=== PATIENT | female | born 1965 | race Caucasian/White ===

== ENCOUNTER 2017-02-26 21:44 | Emergency (ER) | payer OTHER ==
--- NOTE | 2017-02-26 22:52 | ED NURSING NOTES ---
Clinical Report - Nurses [place] [address] [place] [address] 02/26/2017 21:45 Patient: WHITNEY GRAVES TRIAGE Triage time 2146. Acuity: LEVEL 4. Chief Complaint: INJURY TO LEFT SHOULDER. INJURY TO THE LEFT SCAPULA AREA, LEFT SHOULDER and LEFT ARM. --22:00 Yuly Malcolm R.N. 21:46 02/26/17. BP: 158/91. HR: 94. RR: 20. O2 saturation: 99%. Temp: 98.4 F. Pain level now: 09/01. --22:00 Yuly Malcolm R.N. Weight: 65.7 kg measured. Height/Length: 66 inches Measured. BMI: 23.4. --21:56 Yuly Malcolm R.N. Medications tylenol 650mg prn- last dose 1800. --21:55 Yuly Malcolm R.N. Motrin 1200mg at 1800. --21:56 Yuly Malcolm R.N. Centrum Oral i daily . --21:56 Yuly Malcolm R.N. Allergies Demerol. Hydroxyzine. Sulfa Antibiotics. --21:55 Yuly Malcolm R.N. History Arrived by private vehicle. Historian: patient. Unaccompanied. Primary physician (martín). This occurred today (1300). 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 PAST MEDICAL HX: The patient is post-menopausal. SOCIAL HX: Light tobacco smoker (cigarette)- less than 1/2 a pack per day. No alcohol use or drug use. --22:00 Yuly Malcolm R.N. PROBLEMS: Rib Fracture. COPD - Chronic Obstructive Pulmonary Disease. Disc, bulging. Fibromyalgia. Chest Pain. Hypertension. Back Pain. --22:00 Yuly Malcolm R.N. ADDITIONAL SURGERIES: Hysterectomy. Neck Surgery. Oophorectomy. Tonsillectomy. Tubal Ligation. --22:00 Yuly Malcolm R.N. Interventions ID band on patient. To treatment room. --22:00 Yuly Malcolm R.N. PHYSICAL ASSESSMENT 21:46. Ambulatory to room. Patient gowned. GENERAL / NEURO / PSYCH: Oriented X 4. Alert. Appears in pain. EXTREMITIES: Limited ROM present. Capillary refill is less than 2 seconds in the extremities. Extremity pulses are within normal limits. Neuro-vascular status intact to the extremity. Left shoulder: tenderness and swelling. Left arm: tenderness. SKIN: Skin is warm and dry. --22:01 Yuly Malcolm R.N. NURSING PROGRESS NOTES 21:46. Cold pack applied. Patient gowned. Reassurance given. Patient identifiers checked. Call light placed in reach. Side rails up. Bed placed in lowest position. Patient ready for evaluation- chart flagged. --22:00 Yuly Malcolm R.N. 22:11 02/26/2017 Hydrocodone-APAP (Hydrocodone-Acetaminophen) PO 5/325 mg Tablets 1 tab given. Allergies verified, confirmed 5 rights and sedative warning given to the patient. --22:11 Yuly Malcolm R.N. 22:18. Patient walked to radiology with tech. --22:28 Yuly Malcolm R.N. 22:28 02/26/17. Patient walked back to ED from radiology with tech. --22:28 Yuly Malcolm R.N. 22:29 02/26/17. Care transferred and report given (ZABRINA Victoria). --22:29 Yuly Malcolm R.N. 22:33 02/26/17. Care transferred and report received (from ABBY Emery, assumed patient care at this time). --22:33 Christina Diaz R.N. DISPOSITION / DISCHARGE 23:11 02/26/17. Condition at departure: improved and stable. The goals identified in the patient's plan of care were met. No learning barriers present. Reviewed medication(s) side effects, precautions, dosing and course information. Prescription(s) given to the patient. Patient verbalized understanding. Written instructions provided in Swedish. The patient was discharged home and unaccompanied at time of discharge. She left the Emergency Department ambulatory and via private vehicle. Patient driving. --23:11 Christina Diaz R.N. 23:11 02/26/17. Pain level now 05/02. --23:11 Christina Diaz R.N. 21:46 02/26/17. BP: 158/91. HR: 94. RR: 20. O2 saturation: 99%. Temp: 98.4 F. Pain level now: 09/01. --23:11 Christina Diaz R.N. Departure time: 23:11 Feb 26 2017. --23:11 Christina Diaz R.N. Locked/Released at 02/26/2017 23:11 by Christina Diaz R.N.
--- NOTE | 2017-02-26 22:52 | ED ORDER SUMMARY ---
..... Patient: WHITNEY GRAVES OrderSheet [facility] VisitID: [id number] [address] [place] [address] 51y, F Registration Date/Time: 02/26/2017 ORDER SHEET Weight: 65.7 kg (measured) Allergies: Demerol, Hydroxyzine, Sulfa Antibiotics GENERAL ORDERS: Shoulder 2V or more Right Urgent (22:04 02/26/2017 HBivens A.R.N.P.) (Ack 22:06 SRedmond) (22:19 HBivens A.R.N.P.) (Cancelled: Other22:19 HBivens A.R.N.P.) Shoulder 2V or more Left Urgent (22:18 02/26/2017 HBivens A.R.N.P.) (22:26 MCampbell) MEDICATION ORDERS: Hydrocodone-APAP PO 5/325 mg (NOW, HIGH ALERT MEDICATION) (22:04 02/26/2017 HBivens A.R.N.P.) (22:11 DDean R.N.) IV FLUIDS: ORDER SHEET NOTES: [Electronically signed by Christina Diaz R.N. (23:11 02/26/2017)] [Electronically signed by La LopezR.N.P. (14:36 02/27/2017)] [Electronically locked/signed by Christina Diaz R.N. (23:11 02/26/2017)]
--- NOTE | 2017-02-26 22:52 | ED ORDER SUMMARY ---
..... Patient: WHITNEY GRAVES OrderSheet [facility] VisitID: [id number] [address] [place] [address] 51y, F Registration Date/Time: 02/26/2017 ORDER SHEET Weight: 65.7 kg (measured) Allergies: Demerol, Hydroxyzine, Sulfa Antibiotics GENERAL ORDERS: Shoulder 2V or more Right Urgent (22:04 02/26/2017 HBivens A.R.N.P.) (Ack 22:06 SRedmond) (22:19 HBivens A.R.N.P.) (Cancelled: Other22:19 HBivens A.R.N.P.) Shoulder 2V or more Left Urgent (22:18 02/26/2017 HBivens A.R.N.P.) (22:26 MCampbell) MEDICATION ORDERS: Hydrocodone-APAP PO 5/325 mg (NOW, HIGH ALERT MEDICATION) (22:04 02/26/2017 HBivens A.R.N.P.) (22:11 DDean R.N.) IV FLUIDS: ORDER SHEET NOTES: [Electronically signed by Christina Diaz R.N. (23:11 02/26/2017)] [Electronically signed by La LopezR.N.P. (14:36 02/27/2017)] [Electronically locked/signed by Christina Diaz R.N. (23:11 02/26/2017)]
--- NOTE | 2017-02-26 22:52 | ED CLINICAL REPORT ---
Clinical Report - Physicians/Mid Levels [facility] [address] [place] [address] 02/26/2017 21:45 Patient: WHITNEY GRAVES Time Seen: 2154; upon arrival, initial patient contact, initial documentation, patient care assumed. Arrived- By private vehicle. Historian- patient. HISTORY OF PRESENT ILLNESS Chief Complaint: Injury to left shoulder. The injury happened today. Occurred at work. 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 Patient is experiencing severe pain. Patient denies injury to the head or neck. No other injury. REVIEW OF SYSTEMS No swelling, tingling, numbness, weakness or skin laceration. All systems otherwise negative, except as recorded above. PAST HISTORY See nurses notes. PROBLEMS: Rib Fracture. COPD - Chronic Obstructive Pulmonary Disease. Disc, bulging. Fibromyalgia. Chest Pain. Hypertension. Back Pain. --22:00 Yuly Malcolm R.N. ADDITIONAL SURGERIES: Hysterectomy. Neck Surgery. Oophorectomy. Tonsillectomy. Tubal Ligation. --22:00 Yuly Malcolm R.N. The patient's dominant hand is the right. SOCIAL HISTORY Light tobacco smoker. No alcohol use or drug use. No recent travel. Is a local resident. FAMILY HISTORY No significant family medical history. ADDITIONAL NOTES The nursing notes have been reviewed with agreement regarding the chief complaint, HPI, ROS, PMH and patient medications and allergies. PHYSICAL EXAM Vital Signs: 02/26/2017 21:46 BP: 158/91. HR: 94. RR: 20. O2 saturation: 99%. Temp: 98.4 F. Pain level now: 1010. Have been reviewed as normal and appear to be correct. Appearance: Alert. Oriented X3. No acute distress. Head: Head atraumatic. Eyes: Pupils equal, round and reactive to light. Eyes normal inspection. Respiratory: No respiratory distress. Back: Normal inspection. No tenderness. ROM normal. Skin: Skin intact. Skin warm and dry. Normal skin color. Normal skin turgor. Extremities: Abnormal external inspection. Extremity tenderness. Left shoulder: mild tenderness located in the posterior aspect of the shoulder. Neurovascular intact distally. (pt stated she couldn't move it because of pain, but took her shirt off without issues). No erythema, swelling, laceration, abrasion or ecchymosis. No puncture wound, foreign body or deformity. No joint effusion or limitation in ROM. Shoulder injury present. Shoulder otherwise negative. Extremities otherwise negative. Neuro, Vascular and Tendons: Sensation intact. Motor intact. Vascular status intact. Tendon function intact. Tendon visualized, uninjured. Neuro: Oriented X 3. No motor deficit. No sensory deficit. Note: isolated injury to L shoulder. LABS, X-RAYS, AND EKG X-Rays: X-rays are normal and reveal no acute disease (and reviewed by dr sherman). Left shoulder negative. The X-rays were independently viewed by me. PROGRESS AND PROCEDURES Patient counseled in person regarding the patient's stable condition, test results and diagnosis. 22:52. Differential Diagnosis: I considered stress fracture, arthritis, sprain, hyperextension, rotator cuff tear, acromioclavicular separation, soft tissue injury, soft tissue hematoma, tendonitis, myositis, fasciitis and bursitis as a possible cause of upper extremity pain in this patient. This is a partial list of diagnoses considered. Above considerations are based on history, physical exam, reassessment and X-Ray data. Differential diagnosis was discussed with patient. Disposition: Discharged home in good and improved condition (22:52). Condition: good and stable. CLINICAL IMPRESSION Muscle strain of the left trapezius and rotator cuff at the shoulder. INSTRUCTIONS Apply ice for 20 minutes four times a day for one days until better. Don't apply ice directly to skin. Warnings: GENERAL WARNINGS: Return or contact your physician immediately if your condition worsens or changes unexpectedly, if not improving as expected, or if other problems arise. Specifically return if problem worsens. Prescription Medications: Ultram 50 mg tablets: take 1-2 orally every 6 hours as needed for pain. Dispense twenty (20). No refills. Substitution is permissible. Follow-up: Follow up with your doctor in about one week as needed. Call for an appointment. Summary of care provided to patient. Understanding of the discharge instructions verbalized by patient. (Electronically signed by La Lopez A.R.N.P. 02/27/2017 14:36)
--- NOTE | 2017-02-26 23:48 | DIAGNOSTIC IMAGING REPORT ---
PROCEDURE: XR SHOULDER 2 OR MORE VW-LEFT INDICATION: TRAUMA/INJURY TECHNIQUE: Four views. COMPARISON: None. FINDINGS: Osseous structures and joint spaces are normal. IMPRESSION: 1. Normal left shoulder.
--- NOTE | 2017-02-27 14:36 | ED MED RECONCILIATION SUMMARY ---
Patient: WHITNEY GRAVES Medication Reconciliation Report [facility] VisitID: [id number] [address] [place] [address] 51y, F Registration Date/Time: 02/26/2017 Weight: 65.7 kg Height/Length: 66 in. BMI: 23.4 ALLERGIES: Demerol, Hydroxyzine, Sulfa Antibiotics The patient's Home Medications are listed below: THE FOLLOWING MEDICATIONS NEED TO BE RECONCILED: Centrum Oral i daily Motrin 1200mg at 1800 tylenol 650mg prn- last dose 1800 The source(s) of the original Home Medication information: Not obtained. The following Medications were given to the patient in the Emergency Department: Hydrocodone-APAP [PO] PO 1 tab, administered: 02/26/2017 10:11:00 PM The following Medications were prescribed to the patient: Ultram 50 mg tablets: take 1-2 orally every 6 hours as needed for pain. Dispense twenty (20). No refills. Substitution is permissible. -- La Lopez A.R.N.P.
--- NOTE | 2017-02-27 14:36 | ED MAR SUMMARY ---
..... Medication Administration Record [facility] [address] [place] [address] Patient: WHITNEY GRAVES Visit ID: [id number] 51y, F Weight: 65.7 kg Height/Length: 66 in BMI: 23.4 ALLERGIES: Demerol, Hydroxyzine, Sulfa Antibiotics Given 22:11 02/26/2017 Gold, Laura Emery. Medication Administered: HYDROCODONE-APAP [PO] (HYDROCODONE-ACETAMINOPHEN), Dose: 1 tab 5/325 mg Tablets PO. Medication Ordered: Hydrocodone-APAP PO 5/325 mg (NOW, HIGH ALERT MEDICATION).
--- NOTE | 2017-02-27 14:36 | ED MED RECONCILIATION SUMMARY ---
Patient: WHITNEY GRAVES Medication Reconciliation Report [facility] VisitID: [id number] [address] [place] [address] 51y, F Registration Date/Time: 02/26/2017 Weight: 65.7 kg Height/Length: 66 in. BMI: 23.4 ALLERGIES: Demerol, Hydroxyzine, Sulfa Antibiotics The patient's Home Medications are listed below: THE FOLLOWING MEDICATIONS NEED TO BE RECONCILED: Centrum Oral i daily Motrin 1200mg at 1800 tylenol 650mg prn- last dose 1800 The source(s) of the original Home Medication information: Not obtained. The following Medications were given to the patient in the Emergency Department: Hydrocodone-APAP [PO] PO 1 tab, administered: 02/26/2017 10:11:00 PM The following Medications were prescribed to the patient: Ultram 50 mg tablets: take 1-2 orally every 6 hours as needed for pain. Dispense twenty (20). No refills. Substitution is permissible. -- La Lopez A.R.N.P.
--- NOTE | 2017-02-27 14:36 | ED DISCHARGE INSTRUCTIONS ---
Patient: WHITNEY GRAVES General Instructions [facility] VisitID: [id number] [place] [address] 51y, F Registration Date/Time: 02/26/2017 Muscle strain of the left trapezius and rotator cuff at the shoulder. INSTRUCTIONS Apply ice for 20 minutes four times a day for one days until better. Don't apply ice directly to skin. Warnings: GENERAL WARNINGS: Return or contact your physician immediately if your condition worsens or changes unexpectedly, if not improving as expected, or if other problems arise. Specifically return if problem worsens. Prescription Medications: Ultram 50 mg tablets: take 1-2 orally every 6 hours as needed for pain. Dispense twenty (20). No refills. Substitution is permissible. Follow-up: Follow up with your doctor in about one week as needed. Call for an appointment. Summary of care provided to patient. Understanding of the discharge instructions verbalized by patient. ADDITIONAL INFORMATION Muscle Strain,Extremity A MUSCLE STRAIN is a stretching and tearing of muscle fibers. This causes pain, especially with motion of that muscle. There may also be some swelling and bruising. Home Care: 1) Keep the injured area raised to reduce pain and swelling. This is especially important during the first 48 hours. 2) Make an ice pack (ice cubes in a plastic bag, wrapped in a towel) and apply for 20 minutes every 1-2 hours the first day. You should continue with ice packs 3-4 times a day for the second and third days. Unless otherwise instructed, on the fourth day you may begin hot soaks or hot packs (small towel soaked in hot water) 3-4 times a day while you gently exercise the involved area. 3) You may use acetaminophen (Tylenol) or ibuprofen (Motrin, Advil) to control pain, unless another medicine was prescribed. [ NOTE : If you have chronic liver or kidney disease or ever had a stomach ulcer or GI bleeding, talk with your doctor before using these medicines.] 4) For LEG STRAINS: If CRUTCHES have been recommended, do not bear full weight on the injured leg until you can do so without pain. You may return to sports when you are able to hop and run on the injured leg without pain. Follow Up with your doctor or this facility if you are not improving within the next five days. Get Prompt Medical Attention if any of the following occur: -- Fingers or toes become swollen, cold, blue, numb or tingly -- Pain or swelling increases Tramadol Hydrochloride Oral tablet What is this medicine? TRAMADOL (TRA ma dole) is a pain reliever. It is used to treat moderate to severe pain in adults. How should I use this medicine? Take this medicine by mouth with a full glass of water. Follow the directions on the prescription label. If the medicine upsets your stomach, take it with food or milk. Do not take more medicine than you are told to take. Talk to your ferry operator regarding the use of this medicine in children. Special care may be needed. What side effects may I notice from receiving this medicine? Side effects that you should report to your doctor or health critical care transport nurse as soon as possible: allergic reactions like skin rash, itching or hives, swelling of the face, lips, or tongue breathing difficulties, wheezing confusion itching light headedness or fainting spells redness, blistering, peeling or loosening of the skin, including inside the mouth seizures Side effects that usually do not require medical attention (report to your doctor or health critical care transport nurse if they continue or are bothersome): constipation dizziness drowsiness headache nausea, vomiting What may interact with this medicine? Do not take this medicine with any of the following medications: MAOIs like Carbex, Eldepryl, Marplan, Nardil, and Parnate This medicine may also interact with the following medications: alcohol or medicines that contain alcohol antihistamines benzodiazepines bupropion carbamazepine or oxcarbazepine clozapine cyclobenzaprine digoxin furazolidone linezolid medicines for depression, anxiety, or psychotic disturbances medicines for migraine headache like almotriptan, eletriptan, frovatriptan, naratriptan, rizatriptan, sumatriptan, zolmitriptan medicines for pain like pentazocine, buprenorphine, butorphanol, meperidine, nalbuphine, and propoxyphene medicines for sleep muscle relaxants naltrexone phenobarbital phenothiazines like perphenazine, thioridazine, chlorpromazine, mesoridazine, fluphenazine, prochlorperazine, promazine, and trifluoperazine procarbazine warfarin What if I miss a dose? If you miss a dose, take it as soon as you can. If it is almost time for your next dose, take only that dose. Do not take double or extra doses. Where should I keep my medicine? Keep out of the reach of children. Store at room temperature between 15 and 30 degrees C (59 and 86 degrees F). Keep container tightly closed. Throw away any unused medicine after the expiration date. What should I tell my health care provider before I take this medicine? They need to know if you have any of these conditions: brain tumor depression drug abuse or addiction head injury if you frequently drink alcohol containing drinks kidney disease or trouble passing urine liver disease lung disease, asthma, or breathing problems seizures or epilepsy suicidal thoughts, plans, or attempt; a previous suicide attempt by you or a family member an unusual or allergic reaction to tramadol, codeine, other medicines, foods, dyes, or preservatives or trying to get breast-feeding What should I watch for while using this medicine? Tell your doctor or health critical care transport nurse if your pain does not go away, if it gets worse, or if you have new or a different type of pain. You may develop tolerance to the medicine. Tolerance means that you will need a higher dose of the medicine for pain relief. Tolerance is normal and is expected if you take this medicine for a long time. Do not suddenly stop taking your medicine because you may develop a severe reaction. Your body becomes used to the medicine. This does NOT mean you are addicted. Addiction is a behavior related to getting and using a drug for a non-medical reason. If you have pain, you have a medical reason to take pain medicine. Your doctor will tell you how much medicine to take. If your doctor wants you to stop the medicine, the dose will be slowly lowered over time to avoid any side effects. You may get drowsy or dizzy. Do not drive, use machinery, or do anything that needs mental alertness until you know how this medicine affects you. Do not stand or sit up quickly, especially if you are an older patient. This reduces the risk of dizzy or fainting spells. Alcohol can increase or decrease the effects of this medicine. Avoid alcoholic drinks. You may have constipation. Try to have a bowel movement at least every 2 to 3 days. If you do not have a bowel movement for 3 days, call your doctor or health critical care transport nurse. Your mouth may get dry. Chewing sugarless gum or sucking hard candy, and drinking plenty of water may help. Contact your doctor if the problem does not go away or is severe. You have been given the following additional information: Muscle Strain, Extremity Tramadol Hydrochloride Oral tablet (Electronically signed by La Lopez A.R.N.P. 02/27/2017 14:36)
--- NOTE | 2017-02-27 14:36 | ED MAR SUMMARY ---
..... Medication Administration Record [facility] [address] [place] [address] Patient: WHITNEY GRAVES Visit ID: [id number] 51y, F Weight: 65.7 kg Height/Length: 66 in BMI: 23.4 ALLERGIES: Demerol, Hydroxyzine, Sulfa Antibiotics Given 22:11 02/26/2017 Gold, Laura Emery. Medication Administered: HYDROCODONE-APAP [PO] (HYDROCODONE-ACETAMINOPHEN), Dose: 1 tab 5/325 mg Tablets PO. Medication Ordered: Hydrocodone-APAP PO 5/325 mg (NOW, HIGH ALERT MEDICATION).
--- NOTE | 2017-02-27 14:36 | ED DISCHARGE INSTRUCTIONS ---
Patient: WHITNEY GRAVES General Instructions [facility] VisitID: [id number] [place] [address] 51y, F Registration Date/Time: 02/26/2017 Muscle strain of the left trapezius and rotator cuff at the shoulder. INSTRUCTIONS Apply ice for 20 minutes four times a day for one days until better. Don't apply ice directly to skin. Warnings: GENERAL WARNINGS: Return or contact your physician immediately if your condition worsens or changes unexpectedly, if not improving as expected, or if other problems arise. Specifically return if problem worsens. Prescription Medications: Ultram 50 mg tablets: take 1-2 orally every 6 hours as needed for pain. Dispense twenty (20). No refills. Substitution is permissible. Follow-up: Follow up with your doctor in about one week as needed. Call for an appointment. Summary of care provided to patient. Understanding of the discharge instructions verbalized by patient. ADDITIONAL INFORMATION Muscle Strain,Extremity A MUSCLE STRAIN is a stretching and tearing of muscle fibers. This causes pain, especially with motion of that muscle. There may also be some swelling and bruising. Home Care: 1) Keep the injured area raised to reduce pain and swelling. This is especially important during the first 48 hours. 2) Make an ice pack (ice cubes in a plastic bag, wrapped in a towel) and apply for 20 minutes every 1-2 hours the first day. You should continue with ice packs 3-4 times a day for the second and third days. Unless otherwise instructed, on the fourth day you may begin hot soaks or hot packs (small towel soaked in hot water) 3-4 times a day while you gently exercise the involved area. 3) You may use acetaminophen (Tylenol) or ibuprofen (Motrin, Advil) to control pain, unless another medicine was prescribed. [ NOTE : If you have chronic liver or kidney disease or ever had a stomach ulcer or GI bleeding, talk with your doctor before using these medicines.] 4) For LEG STRAINS: If CRUTCHES have been recommended, do not bear full weight on the injured leg until you can do so without pain. You may return to sports when you are able to hop and run on the injured leg without pain. Follow Up with your doctor or this facility if you are not improving within the next five days. Get Prompt Medical Attention if any of the following occur: -- Fingers or toes become swollen, cold, blue, numb or tingly -- Pain or swelling increases Tramadol Hydrochloride Oral tablet What is this medicine? TRAMADOL (TRA ma dole) is a pain reliever. It is used to treat moderate to severe pain in adults. How should I use this medicine? Take this medicine by mouth with a full glass of water. Follow the directions on the prescription label. If the medicine upsets your stomach, take it with food or milk. Do not take more medicine than you are told to take. Talk to your air quality engineer regarding the use of this medicine in children. Special care may be needed. What side effects may I notice from receiving this medicine? Side effects that you should report to your doctor or health child care center administrator as soon as possible: allergic reactions like skin rash, itching or hives, swelling of the face, lips, or tongue breathing difficulties, wheezing confusion itching light headedness or fainting spells redness, blistering, peeling or loosening of the skin, including inside the mouth seizures Side effects that usually do not require medical attention (report to your doctor or health child care center administrator if they continue or are bothersome): constipation dizziness drowsiness headache nausea, vomiting What may interact with this medicine? Do not take this medicine with any of the following medications: MAOIs like Carbex, Eldepryl, Marplan, Nardil, and Parnate This medicine may also interact with the following medications: alcohol or medicines that contain alcohol antihistamines benzodiazepines bupropion carbamazepine or oxcarbazepine clozapine cyclobenzaprine digoxin furazolidone linezolid medicines for depression, anxiety, or psychotic disturbances medicines for migraine headache like almotriptan, eletriptan, frovatriptan, naratriptan, rizatriptan, sumatriptan, zolmitriptan medicines for pain like pentazocine, buprenorphine, butorphanol, meperidine, nalbuphine, and propoxyphene medicines for sleep muscle relaxants naltrexone phenobarbital phenothiazines like perphenazine, thioridazine, chlorpromazine, mesoridazine, fluphenazine, prochlorperazine, promazine, and trifluoperazine procarbazine warfarin What if I miss a dose? If you miss a dose, take it as soon as you can. If it is almost time for your next dose, take only that dose. Do not take double or extra doses. Where should I keep my medicine? Keep out of the reach of children. Store at room temperature between 15 and 30 degrees C (59 and 86 degrees F). Keep container tightly closed. Throw away any unused medicine after the expiration date. What should I tell my health care provider before I take this medicine? They need to know if you have any of these conditions: brain tumor depression drug abuse or addiction head injury if you frequently drink alcohol containing drinks kidney disease or trouble passing urine liver disease lung disease, asthma, or breathing problems seizures or epilepsy suicidal thoughts, plans, or attempt; a previous suicide attempt by you or a family member an unusual or allergic reaction to tramadol, codeine, other medicines, foods, dyes, or preservatives or trying to get breast-feeding What should I watch for while using this medicine? Tell your doctor or health child care center administrator if your pain does not go away, if it gets worse, or if you have new or a different type of pain. You may develop tolerance to the medicine. Tolerance means that you will need a higher dose of the medicine for pain relief. Tolerance is normal and is expected if you take this medicine for a long time. Do not suddenly stop taking your medicine because you may develop a severe reaction. Your body becomes used to the medicine. This does NOT mean you are addicted. Addiction is a behavior related to getting and using a drug for a non-medical reason. If you have pain, you have a medical reason to take pain medicine. Your doctor will tell you how much medicine to take. If your doctor wants you to stop the medicine, the dose will be slowly lowered over time to avoid any side effects. You may get drowsy or dizzy. Do not drive, use machinery, or do anything that needs mental alertness until you know how this medicine affects you. Do not stand or sit up quickly, especially if you are an older patient. This reduces the risk of dizzy or fainting spells. Alcohol can increase or decrease the effects of this medicine. Avoid alcoholic drinks. You may have constipation. Try to have a bowel movement at least every 2 to 3 days. If you do not have a bowel movement for 3 days, call your doctor or health child care center administrator. Your mouth may get dry. Chewing sugarless gum or sucking hard candy, and drinking plenty of water may help. Contact your doctor if the problem does not go away or is severe. You have been given the following additional information: Muscle Strain, Extremity Tramadol Hydrochloride Oral tablet (Electronically signed by La Lopez A.R.N.P. 02/27/2017 14:36)
== END 2017-02-26 23:11 | disposition home or self-care (01) ==
LOC: ED SRH 21:44
DX: S46.812A Strain of other muscles, fascia and tendons at shoulder and upper arm level, left arm, initial encounter (principal); S46.012A Strain of muscle(s) and tendon(s) of the rotator cuff of left shoulder, initial encounter; X50.0XXA Overexertion from strenuous movement or load, initial encounter; Y93.89 Activity, other specified; Y92.89 Other specified places as the place of occurrence of the external cause; Y99.0 Civilian activity done for income or pay; J44.9 Chronic obstructive pulmonary disease, unspecified; I10 Essential (primary) hypertension; F17.210 Nicotine dependence, cigarettes, uncomplicated; Z79.84 Long term (current) use of oral hypoglycemic drugs; Z88.2 Allergy status to sulfonamides

== ENCOUNTER 2017-05-21 11:24 | Emergency (ER) | payer OTHER ==
--- NOTE | 2017-05-21 12:52 | ED CLINICAL REPORT ---
Clinical Report - Physicians/Mid Levels [facility] [address] [place] [place] [address] 05/21/2017 11:28 Patient: WHITNEY GRAVES Time Seen: 12:43 Yosvany 2016. Arrived- By private vehicle. Historian- patient. CPT: ER phys charges level 3 (#[id number]). HISTORY OF PRESENT ILLNESS Chief Complaint: BACK INJURY and BACK PAIN. It is described as being moderate in degree. The quality is noted to be sharp, aching and "pain". No radiation. Onset was yesterday and it is still present. No bladder dysfunction, bowel dysfunction, sensory loss or motor loss. Patient notes an injury. Mechanism of injury- she was lifting. No other injury. Similar symptoms previously: Recent medical care: Not recently seen/assessed. REVIEW OF SYSTEMS No fever, chills, difficulty with urination, urinary frequency or hematuria. No sore throat, cough, difficulty breathing, chest pain or abdominal pain. No nausea or vomiting. PAST HISTORY Has had back injury. She has had prior back pain. Medications: Ibuprofen Oral. Naproxen Oral. tylenol 650mg prn- last dose 1800. Allergies: Demerol. Hydroxyzine. Sulfa Antibiotics. SOCIAL HISTORY No alcohol use or drug use. ADDITIONAL NOTES The nursing notes have been reviewed. PHYSICAL EXAM Vital Signs: 05/21/2017 11:46 BP: 148/106. HR: 88. RR: 20. O2 saturation: 99%. Temp: 98.6 F. Appearance: Alert. Patient in mild distress. ENT: Pharynx normal. Neck: Normal inspection. Neck nontender. Painless ROM. CVS: Heart sounds normal. Respiratory: No respiratory distress. Abdomen: Nontender. Back: Normal inspection. Soft tissue tenderness (Over the right trapezius). No limitation in ROM. Skin: Skin warm. Normal skin color. No rash. Extremities: Extremities exhibit normal ROM. Extremities nontender. Neuro: Oriented X 3. Mood/affect normal. No motor deficit. No sensory deficit. Reflexes normal. PROGRESS AND PROCEDURES Patient/family counseled. Disposition: Discharged. Condition: stable. CLINICAL IMPRESSION Muscle strain of the upper back (left trapezius.). INSTRUCTIONS Apply moist heat for 15-20 minutes three times a day for one weeks until better. Limit lifting. No strenuous activity. Your Current Medications: CONTINUE TAKING THE FOLLOWING MEDICATIONS: Ibuprofen Oral. Naproxen Oral. tylenol 650mg prn- last dose 1800*. Prescription Medications: Flexeril 5 mg: take 1 orally every 8 hours as needed for muscle spasm or pain. Dispense ten (10). No refills. Substitution is permissible. Ultram take 1-2 orally every 8 hours as needed for pain. Dispense fifteen (15). No refills. Substitution is permissible. Follow-up: Follow up with your doctor in one week. Call for an appointment. Understanding of the discharge instructions verbalized by patient. (Electronically signed by Jonatan Orourke MD 05/22/2017 9:04) Addenda for WHITNEY GRAVES VisitID: [id number] Date: 05/21/2017 05/21/2017 16:56 [facility] pharmacy called, wanted to verify dose of Ultram, consulted w/ Dr. Orourke and he said 50 mg is correct. (Electronically signed by Jerrica Frederick R.N. - 05/21/2017 16:56)
--- NOTE | 2017-05-21 12:52 | ED CLINICAL REPORT ---
Clinical Report - Physicians/Mid Levels [facility] [address] [place] [address] 05/21/2017 11:28 Patient: WHITNEY GRAVES Time Seen: 12:43 Yosvany 2016. Arrived- By private vehicle. Historian- patient. CPT: ER phys charges level 3 (#[id number]). HISTORY OF PRESENT ILLNESS Chief Complaint: BACK INJURY and BACK PAIN. It is described as being moderate in degree. The quality is noted to be sharp, aching and "pain". No radiation. Onset was yesterday and it is still present. No bladder dysfunction, bowel dysfunction, sensory loss or motor loss. Patient notes an injury. Mechanism of injury- she was lifting. No other injury. Similar symptoms previously: Recent medical care: Not recently seen/assessed. REVIEW OF SYSTEMS No fever, chills, difficulty with urination, urinary frequency or hematuria. No sore throat, cough, difficulty breathing, chest pain or abdominal pain. No nausea or vomiting. PAST HISTORY Has had back injury. She has had prior back pain. Medications: Ibuprofen Oral. Naproxen Oral. tylenol 650mg prn- last dose 1800. Allergies: Demerol. Hydroxyzine. Sulfa Antibiotics. SOCIAL HISTORY No alcohol use or drug use. ADDITIONAL NOTES The nursing notes have been reviewed. PHYSICAL EXAM Vital Signs: 05/21/2017 11:46 BP: 148/106. HR: 88. RR: 20. O2 saturation: 99%. Temp: 98.6 F. Appearance: Alert. Patient in mild distress. ENT: Pharynx normal. Neck: Normal inspection. Neck nontender. Painless ROM. CVS: Heart sounds normal. Respiratory: No respiratory distress. Abdomen: Nontender. Back: Normal inspection. Soft tissue tenderness (Over the right trapezius). No limitation in ROM. Skin: Skin warm. Normal skin color. No rash. Extremities: Extremities exhibit normal ROM. Extremities nontender. Neuro: Oriented X 3. Mood/affect normal. No motor deficit. No sensory deficit. Reflexes normal. PROGRESS AND PROCEDURES Patient/family counseled. Disposition: Discharged. Condition: stable. CLINICAL IMPRESSION Muscle strain of the upper back (left trapezius.). INSTRUCTIONS Apply moist heat for 15-20 minutes three times a day for one weeks until better. Limit lifting. No strenuous activity. Your Current Medications: CONTINUE TAKING THE FOLLOWING MEDICATIONS: Ibuprofen Oral. Naproxen Oral. tylenol 650mg prn- last dose 1800*. Prescription Medications: Flexeril 5 mg: take 1 orally every 8 hours as needed for muscle spasm or pain. Dispense ten (10). No refills. Substitution is permissible. Ultram take 1-2 orally every 8 hours as needed for pain. Dispense fifteen (15). No refills. Substitution is permissible. Follow-up: Follow up with your doctor in one week. Call for an appointment. Understanding of the discharge instructions verbalized by patient. (Electronically signed by Jonatan Orourke MD 05/22/2017 9:04) Addenda for WHITNEY GRAVES VisitID: [id number] Date: 05/21/2017 05/21/2017 16:56 [facility] pharmacy called, wanted to verify dose of Ultram, consulted w/ Dr. Orourke and he said 50 mg is correct. (Electronically signed by Jerrica Frederick R.N. - 05/21/2017 16:56)
--- NOTE | 2017-05-21 12:52 | ED NURSING NOTES ---
Clinical Report - Nurses [facility] [place] [address] 05/21/2017 11:28 Patient: WHITNEY GRAVES TRIAGE Triage time 11:46. Acuity: LEVEL 3. Chief Complaint: BACK PAIN. Alert. No acute distress. --11:55 Gopal Patterson R.N. 11:46 05/21/17. BP: 148/106. HR: 88. RR: 20. O2 saturation: 99%. Temp: 98.6 F. Pain level now 07/02. --11:55 Gopal Patterson R.N. Weight: 68 kg stated. Height/Length: 66 inches Per Patient. BMI: 24.2. --11:53 Gopal Patterson R.N. Medications tylenol 650mg prn- last dose 1800. --11:48 Gopal Patterson R.N. Ibuprofen Oral. Naproxen Oral. --11:48 Gopal Patterson R.N. Allergies Demerol. Hydroxyzine. Sulfa Antibiotics. --11:48 Gopal Patterson R.N. History Arrived by private vehicle. Historian: patient. Accompanied by family. This started yesterday. History of recent trauma- lifting injury. Treatment PSYCHIATRIC TECHNICIAN: None. SOCIAL HX: Smoker- current status unknown. No alcohol use or drug use. FALL RISK ASSESSMENT: Fall risk assessment completed. No fall risk identified. NUTRITIONAL RISK ASSESSMENT: The nutritional risk assessment revealed no deficiencies. FUNCTIONAL ASSESSMENT: Functional assessment: no impairments noted. LEARNING NEEDS ASSESSMENT: The learning needs assessment revealed no barriers. SKIN INTEGRITY ASSESSMENT: Skin integrity risk assessment completed. No skin integrity risk identified. --11:55 Gopal Patterson R.N. Interventions ID band on patient. --11:55 Gopal Patterson R.N. PHYSICAL ASSESSMENT GENERAL / NEURO / PSYCH: Alert. Oriented X 4. Appears in no acute distress. RESPIRATORY: Respirations not labored. --11:55 Gopal Patterson R.N. NURSING PROGRESS NOTES Call light placed in reach. Bed placed in lowest position. --11:55 Gopal Patterson R.N. DISPOSITION / DISCHARGE Condition at departure: unchanged. No learning barriers present. Discharge instructions provided and reviewed with the patient. Patient verbalized understanding. Written instructions provided in Indian. The patient was discharged by the physician. --13:06 Gopal Patterson R.N. 13:05 05/21/17. BP: 140/98. HR: 88. RR: 20. O2 saturation: 98%. Temp: 98.6 F. Pain level now 06/01. --13:06 Gopal Patterson R.N. Locked/Released at 05/21/2017 13:06 by Gopal Patterson R.N.
--- NOTE | 2017-05-21 12:52 | ED NURSING NOTES ---
Clinical Report - Nurses [facility] [place] [address] 05/21/2017 11:28 Patient: WHITNEY GRAVES TRIAGE Triage time 11:46. Acuity: LEVEL 3. Chief Complaint: BACK PAIN. Alert. No acute distress. --11:55 Gopal Patterson R.N. 11:46 05/21/17. BP: 148/106. HR: 88. RR: 20. O2 saturation: 99%. Temp: 98.6 F. Pain level now 07/02. --11:55 Gopal Patterson R.N. Weight: 68 kg stated. Height/Length: 66 inches Per Patient. BMI: 24.2. --11:53 Gopal Patterson R.N. Medications tylenol 650mg prn- last dose 1800. --11:48 Gopal Patterson R.N. Ibuprofen Oral. Naproxen Oral. --11:48 Gopal Patterson R.N. Allergies Demerol. Hydroxyzine. Sulfa Antibiotics. --11:48 Gopal Patterson R.N. History Arrived by private vehicle. Historian: patient. Accompanied by family. This started yesterday. History of recent trauma- lifting injury. Treatment NONPROFIT FINANCIAL CONTROLLER: None. SOCIAL HX: Smoker- current status unknown. No alcohol use or drug use. FALL RISK ASSESSMENT: Fall risk assessment completed. No fall risk identified. NUTRITIONAL RISK ASSESSMENT: The nutritional risk assessment revealed no deficiencies. FUNCTIONAL ASSESSMENT: Functional assessment: no impairments noted. LEARNING NEEDS ASSESSMENT: The learning needs assessment revealed no barriers. SKIN INTEGRITY ASSESSMENT: Skin integrity risk assessment completed. No skin integrity risk identified. --11:55 Gopal Patterson R.N. Interventions ID band on patient. --11:55 Gopal Patterson R.N. PHYSICAL ASSESSMENT GENERAL / NEURO / PSYCH: Alert. Oriented X 4. Appears in no acute distress. RESPIRATORY: Respirations not labored. --11:55 oGpal Patterson R.N. NURSING PROGRESS NOTES Call light placed in reach. Bed placed in lowest position. --11:55 Gopal Patterson R.N. DISPOSITION / DISCHARGE Condition at departure: unchanged. No learning barriers present. Discharge instructions provided and reviewed with the patient. Patient verbalized understanding. Written instructions provided in Estonian. The patient was discharged by the physician. --13:06 Gopal Patterson R.N. 13:05 05/21/17. BP: 140/98. HR: 88. RR: 20. O2 saturation: 98%. Temp: 98.6 F. Pain level now 06/01. --13:06 Gopal Patterson R.N. Locked/Released at 05/21/2017 13:06 by Gopal Patterson R.N.
--- NOTE | 2017-05-22 09:04 | ED MED RECONCILIATION SUMMARY ---
Patient: WHITNEY GRAVES Medication Reconciliation Report [facility] VisitID: [id number] [address] [place] [address] 51y, F Registration Date/Time: 05/21/2017 Weight: 68.0 kg Height/Length: 66 in. BMI: 24.2 ALLERGIES: Demerol, Hydroxyzine, Sulfa Antibiotics The patient's Home Medications are listed below: CONTINUE TAKING THE FOLLOWING MEDICATIONS: Ibuprofen Oral Naproxen Oral tylenol 650mg prn- last dose 1800 The source(s) of the original Home Medication information: Not obtained. The following Medications were given to the patient in the Emergency Department: None. The following Medications were prescribed to the patient: Flexeril 5 mg: take 1 orally every 8 hours as needed for muscle spasm or pain. Dispense ten (10). No refills. Substitution is permissible. -- Jonatan Orourke MD [facility] take 1-2 orally every 8 hours as needed for pain. Dispense fifteen (15). No refills. Substitution is permissible. -- Jonatan Orourke MD
--- NOTE | 2017-05-22 09:04 | ED MAR SUMMARY ---
..... Medication Administration Record [facility] [address] [place], [place] [id number] Patient: WHITNEY GRAVES Visit ID: [id number] 51y, F Weight: 68.0 kg Height/Length: 66 in BMI: 24.2 ALLERGIES: Demerol, Hydroxyzine, Sulfa Antibiotics
--- NOTE | 2017-05-22 09:04 | ED DISCHARGE INSTRUCTIONS ---
Patient: WHITNEY GRAVES General Instructions [facility] VisitID: [id number] [place] [address] 51y, F Registration Date/Time: 05/21/2017 Muscle strain of the upper back (left trapezius.). INSTRUCTIONS Apply moist heat for 15-20 minutes three times a day for one weeks until better. Limit lifting. No strenuous activity. Your Current Medications: CONTINUE TAKING THE FOLLOWING MEDICATIONS: Ibuprofen Oral. Naproxen Oral. tylenol 650mg prn- last dose 1800*. Prescription Medications: Flexeril 5 mg: take 1 orally every 8 hours as needed for muscle spasm or pain. Dispense ten (10). No refills. Substitution is permissible. Ultram take 1-2 orally every 8 hours as needed for pain. Dispense fifteen (15). No refills. Substitution is permissible. Follow-up: Follow up with your doctor in one week. Call for an appointment. Understanding of the discharge instructions verbalized by patient. ADDITIONAL INFORMATION Cyclobenzaprine Hydrochloride Oral tablet What is this medicine? CYCLOBENZAPRINE (sye kloe MARIO za preen) is a muscle relaxer. It is used to treat muscle pain, spasms, and stiffness. How should I use this medicine? Take this medicine by mouth with a glass of water. Follow the directions on the prescription label. If this medicine upsets your stomach, take it with food or milk. Take your medicine at regular intervals. Do not take it more often than directed. Talk to your inspector coated fabrics regarding the use of this medicine in children. Special care may be needed. What side effects may I notice from receiving this medicine? Side effects that you should report to your doctor or health transitions rn care coordinator as soon as possible: allergic reactions like skin rash, itching or hives, swelling of the face, lips, or tongue chest pain fast heartbeat hallucinations seizures vomiting Side effects that usually do not require medical attention (report to your doctor or health transitions rn care coordinator if they continue or are bothersome): headache What may interact with this medicine? Do not take this medicine with any of the following medications: cisapride droperidol flecainide grepafloxacin halofantrine levomethadyl MAOIs like Carbex, Eldepryl, Marplan, Nardil, and Parnate nilotinib pimozide probucol sertindole This medicine may also interact with the following medications: abarelix alcohol contrast dyes dolasetron guanethidine medicines for cancer medicines for depression, anxiety, or psychotic disturbances medicines to treat an irregular heartbeat medicines used for sleep or numbness during surgery or procedure methadone octreotide ondansetron palonosetron phenothiazines like chlorpromazine, mesoridazine, prochlorperazine, thioridazine some medicines for infection like alfuzosin, chloroquine, clarithromycin, levofloxacin, mefloquine, pentamidine, troleandomycin tramadol vardenafil What if I miss a dose? If you miss a dose, take it as soon as you can. If it is almost time for your next dose, take only that dose. Do not take double or extra doses. Where should I keep my medicine? Keep out of the reach of children. Store at room temperature between 15 and 30 degrees C (59 and 86 degrees F). Keep container tightly closed. Throw away any unused medicine after the expiration date. What should I tell my health care provider before I take this medicine? They need to know if you have any of these conditions: heart disease, irregular heartbeat, or previous heart attack liver disease thyroid problem an unusual or allergic reaction to cyclobenzaprine, tricyclic antidepressants, lactose, other medicines, foods, dyes, or preservatives or trying to get breast-feeding What should I watch for while using this medicine? Check with your doctor or health transitions rn care coordinator if your condition does not improve within 1 to 3 weeks. You may get drowsy or dizzy when you first start taking the medicine or change doses. Do not drive, use machinery, or do anything that may be dangerous until you know how the medicine affects you. Stand or sit up slowly. Your mouth may get dry. Drinking water, chewing sugarless gum, or sucking on hard candy may help. Tramadol Hydrochloride Oral tablet What is this medicine? TRAMADOL (TRA ma dole) is a pain reliever. It is used to treat moderate to severe pain in adults. How should I use this medicine? Take this medicine by mouth with a full glass of water. Follow the directions on the prescription label. If the medicine upsets your stomach, take it with food or milk. Do not take more medicine than you are told to take. Talk to your inspector coated fabrics regarding the use of this medicine in children. Special care may be needed. What side effects may I notice from receiving this medicine? Side effects that you should report to your doctor or health transitions rn care coordinator as soon as possible: allergic reactions like skin rash, itching or hives, swelling of the face, lips, or tongue breathing difficulties, wheezing confusion itching light headedness or fainting spells redness, blistering, peeling or loosening of the skin, including inside the mouth seizures Side effects that usually do not require medical attention (report to your doctor or health transitions rn care coordinator if they continue or are bothersome): constipation dizziness drowsiness headache nausea, vomiting What may interact with this medicine? Do not take this medicine with any of the following medications: MAOIs like Carbex, Eldepryl, Marplan, Nardil, and Parnate This medicine may also interact with the following medications: alcohol or medicines that contain alcohol antihistamines benzodiazepines bupropion carbamazepine or oxcarbazepine clozapine cyclobenzaprine digoxin furazolidone linezolid medicines for depression, anxiety, or psychotic disturbances medicines for migraine headache like almotriptan, eletriptan, frovatriptan, naratriptan, rizatriptan, sumatriptan, zolmitriptan medicines for pain like pentazocine, buprenorphine, butorphanol, meperidine, nalbuphine, and propoxyphene medicines for sleep muscle relaxants naltrexone phenobarbital phenothiazines like perphenazine, thioridazine, chlorpromazine, mesoridazine, fluphenazine, prochlorperazine, promazine, and trifluoperazine procarbazine warfarin What if I miss a dose? If you miss a dose, take it as soon as you can. If it is almost time for your next dose, take only that dose. Do not take double or extra doses. Where should I keep my medicine? Keep out of the reach of children. Store at room temperature between 15 and 30 degrees C (59 and 86 degrees F). Keep container tightly closed. Throw away any unused medicine after the expiration date. What should I tell my health care provider before I take this medicine? They need to know if you have any of these conditions: brain tumor depression drug abuse or addiction head injury if you frequently drink alcohol containing drinks kidney disease or trouble passing urine liver disease lung disease, asthma, or breathing problems seizures or epilepsy suicidal thoughts, plans, or attempt; a previous suicide attempt by you or a family member an unusual or allergic reaction to tramadol, codeine, other medicines, foods, dyes, or preservatives or trying to get breast-feeding What should I watch for while using this medicine? Tell your doctor or health transitions rn care coordinator if your pain does not go away, if it gets worse, or if you have new or a different type of pain. You may develop tolerance to the medicine. Tolerance means that you will need a higher dose of the medicine for pain relief. Tolerance is normal and is expected if you take this medicine for a long time. Do not suddenly stop taking your medicine because you may develop a severe reaction. Your body becomes used to the medicine. This does NOT mean you are addicted. Addiction is a behavior related to getting and using a drug for a non-medical reason. If you have pain, you have a medical reason to take pain medicine. Your doctor will tell you how much medicine to take. If your doctor wants you to stop the medicine, the dose will be slowly lowered over time to avoid any side effects. You may get drowsy or dizzy. Do not drive, use machinery, or do anything that needs mental alertness until you know how this medicine affects you. Do not stand or sit up quickly, especially if you are an older patient. This reduces the risk of dizzy or fainting spells. Alcohol can increase or decrease the effects of this medicine. Avoid alcoholic drinks. You may have constipation. Try to have a bowel movement at least every 2 to 3 days. If you do not have a bowel movement for 3 days, call your doctor or health transitions rn care coordinator. Your mouth may get dry. Chewing sugarless gum or sucking hard candy, and drinking plenty of water may help. Contact your doctor if the problem does not go away or is severe. You have been given the following additional information: Cyclobenzaprine Hydrochloride Oral tablet Tramadol Hydrochloride Oral tablet Limit lifting. No strenuous activity. (Electronically signed by Jonatan Orourke MD 05/22/2017 9:04)
--- NOTE | 2017-05-22 09:04 | ED MED RECONCILIATION SUMMARY ---
Patient: WHITNEY GRAVES Medication Reconciliation Report [facility] VisitID: [id number] [address] [place] [address] 51y, F Registration Date/Time: 05/21/2017 Weight: 68.0 kg Height/Length: 66 in. BMI: 24.2 ALLERGIES: Demerol, Hydroxyzine, Sulfa Antibiotics The patient's Home Medications are listed below: CONTINUE TAKING THE FOLLOWING MEDICATIONS: Ibuprofen Oral Naproxen Oral tylenol 650mg prn- last dose 1800 The source(s) of the original Home Medication information: Not obtained. The following Medications were given to the patient in the Emergency Department: None. The following Medications were prescribed to the patient: Flexeril 5 mg: take 1 orally every 8 hours as needed for muscle spasm or pain. Dispense ten (10). No refills. Substitution is permissible. -- Jonatan Orourke MD [facility] take 1-2 orally every 8 hours as needed for pain. Dispense fifteen (15). No refills. Substitution is permissible. -- Jonatan Orourke MD
--- NOTE | 2017-05-22 09:04 | ED MAR SUMMARY ---
..... Medication Administration Record [facility] [address] [place] [id number] Patient: WHITNEY GRAVES Visit ID: [id number] 51y, F Weight: 68.0 kg Height/Length: 66 in BMI: 24.2 ALLERGIES: Demerol, Hydroxyzine, Sulfa Antibiotics
--- NOTE | 2017-05-22 09:04 | ED DISCHARGE INSTRUCTIONS ---
Patient: WHITNEY GRAVES General Instructions [facility] VisitID: [id number] [place] [address] 51y, F Registration Date/Time: 05/21/2017 Muscle strain of the upper back (left trapezius.). INSTRUCTIONS Apply moist heat for 15-20 minutes three times a day for one weeks until better. Limit lifting. No strenuous activity. Your Current Medications: CONTINUE TAKING THE FOLLOWING MEDICATIONS: Ibuprofen Oral. Naproxen Oral. tylenol 650mg prn- last dose 1800*. Prescription Medications: Flexeril 5 mg: take 1 orally every 8 hours as needed for muscle spasm or pain. Dispense ten (10). No refills. Substitution is permissible. Ultram take 1-2 orally every 8 hours as needed for pain. Dispense fifteen (15). No refills. Substitution is permissible. Follow-up: Follow up with your doctor in one week. Call for an appointment. Understanding of the discharge instructions verbalized by patient. ADDITIONAL INFORMATION Cyclobenzaprine Hydrochloride Oral tablet What is this medicine? CYCLOBENZAPRINE (sye kloe MARIO za preen) is a muscle relaxer. It is used to treat muscle pain, spasms, and stiffness. How should I use this medicine? Take this medicine by mouth with a glass of water. Follow the directions on the prescription label. If this medicine upsets your stomach, take it with food or milk. Take your medicine at regular intervals. Do not take it more often than directed. Talk to your shirt maker regarding the use of this medicine in children. Special care may be needed. What side effects may I notice from receiving this medicine? Side effects that you should report to your doctor or health women's health care nurse practitioner as soon as possible: allergic reactions like skin rash, itching or hives, swelling of the face, lips, or tongue chest pain fast heartbeat hallucinations seizures vomiting Side effects that usually do not require medical attention (report to your doctor or health women's health care nurse practitioner if they continue or are bothersome): headache What may interact with this medicine? Do not take this medicine with any of the following medications: cisapride droperidol flecainide grepafloxacin halofantrine levomethadyl MAOIs like Carbex, Eldepryl, Marplan, Nardil, and Parnate nilotinib pimozide probucol sertindole This medicine may also interact with the following medications: abarelix alcohol contrast dyes dolasetron guanethidine medicines for cancer medicines for depression, anxiety, or psychotic disturbances medicines to treat an irregular heartbeat medicines used for sleep or numbness during surgery or procedure methadone octreotide ondansetron palonosetron phenothiazines like chlorpromazine, mesoridazine, prochlorperazine, thioridazine some medicines for infection like alfuzosin, chloroquine, clarithromycin, levofloxacin, mefloquine, pentamidine, troleandomycin tramadol vardenafil What if I miss a dose? If you miss a dose, take it as soon as you can. If it is almost time for your next dose, take only that dose. Do not take double or extra doses. Where should I keep my medicine? Keep out of the reach of children. Store at room temperature between 15 and 30 degrees C (59 and 86 degrees F). Keep container tightly closed. Throw away any unused medicine after the expiration date. What should I tell my health care provider before I take this medicine? They need to know if you have any of these conditions: heart disease, irregular heartbeat, or previous heart attack liver disease thyroid problem an unusual or allergic reaction to cyclobenzaprine, tricyclic antidepressants, lactose, other medicines, foods, dyes, or preservatives or trying to get breast-feeding What should I watch for while using this medicine? Check with your doctor or health women's health care nurse practitioner if your condition does not improve within 1 to 3 weeks. You may get drowsy or dizzy when you first start taking the medicine or change doses. Do not drive, use machinery, or do anything that may be dangerous until you know how the medicine affects you. Stand or sit up slowly. Your mouth may get dry. Drinking water, chewing sugarless gum, or sucking on hard candy may help. Tramadol Hydrochloride Oral tablet What is this medicine? TRAMADOL (TRA ma dole) is a pain reliever. It is used to treat moderate to severe pain in adults. How should I use this medicine? Take this medicine by mouth with a full glass of water. Follow the directions on the prescription label. If the medicine upsets your stomach, take it with food or milk. Do not take more medicine than you are told to take. Talk to your shirt maker regarding the use of this medicine in children. Special care may be needed. What side effects may I notice from receiving this medicine? Side effects that you should report to your doctor or health women's health care nurse practitioner as soon as possible: allergic reactions like skin rash, itching or hives, swelling of the face, lips, or tongue breathing difficulties, wheezing confusion itching light headedness or fainting spells redness, blistering, peeling or loosening of the skin, including inside the mouth seizures Side effects that usually do not require medical attention (report to your doctor or health women's health care nurse practitioner if they continue or are bothersome): constipation dizziness drowsiness headache nausea, vomiting What may interact with this medicine? Do not take this medicine with any of the following medications: MAOIs like Carbex, Eldepryl, Marplan, Nardil, and Parnate This medicine may also interact with the following medications: alcohol or medicines that contain alcohol antihistamines benzodiazepines bupropion carbamazepine or oxcarbazepine clozapine cyclobenzaprine digoxin furazolidone linezolid medicines for depression, anxiety, or psychotic disturbances medicines for migraine headache like almotriptan, eletriptan, frovatriptan, naratriptan, rizatriptan, sumatriptan, zolmitriptan medicines for pain like pentazocine, buprenorphine, butorphanol, meperidine, nalbuphine, and propoxyphene medicines for sleep muscle relaxants naltrexone phenobarbital phenothiazines like perphenazine, thioridazine, chlorpromazine, mesoridazine, fluphenazine, prochlorperazine, promazine, and trifluoperazine procarbazine warfarin What if I miss a dose? If you miss a dose, take it as soon as you can. If it is almost time for your next dose, take only that dose. Do not take double or extra doses. Where should I keep my medicine? Keep out of the reach of children. Store at room temperature between 15 and 30 degrees C (59 and 86 degrees F). Keep container tightly closed. Throw away any unused medicine after the expiration date. What should I tell my health care provider before I take this medicine? They need to know if you have any of these conditions: brain tumor depression drug abuse or addiction head injury if you frequently drink alcohol containing drinks kidney disease or trouble passing urine liver disease lung disease, asthma, or breathing problems seizures or epilepsy suicidal thoughts, plans, or attempt; a previous suicide attempt by you or a family member an unusual or allergic reaction to tramadol, codeine, other medicines, foods, dyes, or preservatives or trying to get breast-feeding What should I watch for while using this medicine? Tell your doctor or health women's health care nurse practitioner if your pain does not go away, if it gets worse, or if you have new or a different type of pain. You may develop tolerance to the medicine. Tolerance means that you will need a higher dose of the medicine for pain relief. Tolerance is normal and is expected if you take this medicine for a long time. Do not suddenly stop taking your medicine because you may develop a severe reaction. Your body becomes used to the medicine. This does NOT mean you are addicted. Addiction is a behavior related to getting and using a drug for a non-medical reason. If you have pain, you have a medical reason to take pain medicine. Your doctor will tell you how much medicine to take. If your doctor wants you to stop the medicine, the dose will be slowly lowered over time to avoid any side effects. You may get drowsy or dizzy. Do not drive, use machinery, or do anything that needs mental alertness until you know how this medicine affects you. Do not stand or sit up quickly, especially if you are an older patient. This reduces the risk of dizzy or fainting spells. Alcohol can increase or decrease the effects of this medicine. Avoid alcoholic drinks. You may have constipation. Try to have a bowel movement at least every 2 to 3 days. If you do not have a bowel movement for 3 days, call your doctor or health women's health care nurse practitioner. Your mouth may get dry. Chewing sugarless gum or sucking hard candy, and drinking plenty of water may help. Contact your doctor if the problem does not go away or is severe. You have been given the following additional information: Cyclobenzaprine Hydrochloride Oral tablet Tramadol Hydrochloride Oral tablet Limit lifting. No strenuous activity. (Electronically signed by Jonatan Orourke MD 05/22/2017 9:04)
== END 2017-05-21 13:10 | disposition home or self-care (01) ==
LOC: ED SRH 11:24
DX: S29.012A Strain of muscle and tendon of back wall of thorax, initial encounter (principal); X50.9XXA Other and unspecified overexertion or strenuous movements or postures, initial encounter; Y93.9 Activity, unspecified; Y99.9 Unspecified external cause status; Y92.9 Unspecified place or not applicable; Z88.2 Allergy status to sulfonamides; Z88.5 Allergy status to narcotic agent; Z88.8 Allergy status to other drugs, medicaments and biological substances